=== PATIENT | female | born 1935 | race Caucasian/White ===

== ENCOUNTER 2020-03-05 10:20 | Inpatient (IN) | payer MEDICARE ==
[2020-03-05 11:45] LABS: HEMATOCRIT 45.1 % (36.0-47.0); HEMOGLOBIN 15.2 g/dL (12.0-15.5); MEAN CORPUSCULAR HEMOGLOBIN 29.6 pg (27.0-33.4); MEAN CORPUSCULAR HGB CONC 33.7 g/dL (32.0-36.0); MEAN CORPUSCULAR VOLUME 88 fl (80-97); PLATELET COUNT 389 10^3/uL (150-450); RED BLOOD COUNT 5.12 10^6/uL (3.72-5.28); RED CELL DISTRIBUTION WIDTH 13.3 % (11.5-14.0); WHITE BLOOD COUNT 12.7 10^3/uL (4.0-10.5)
--- NOTE | 2020-03-05 12:00 | RADIOLOGY REPORT (SQ) ---
EXAM DESCRIPTION: CHEST SINGLE VIEW IMAGES COMPLETED DATE/TIME: 03/05/2020 11:27 am REASON FOR STUDY: sob COMPARISON: 03/31/2014 EXAM PARAMETERS: NUMBER OF VIEWS: One view. TECHNIQUE: Single frontal radiographic view of the chest acquired. RADIATION DOSE: NA LIMITATIONS: None. FINDINGS: LUNGS AND PLEURA: Multifocal airspace opacities are seen bilaterally. Small pleural effus ions may be present. No pneumothorax. MEDIASTINUM AND HILAR STRUCTURES: No masses. Contour normal. HEART AND VASCULAR STRUCTURES: Heart normal in size. Normal vasculature. BONES: No acute findings. HARDWARE: None in the chest. OTHER: No other significant finding. IMPRESSION: In the appropriate clinical setting, findings are consistent with multi lobar pneumonia. Given distribution, recommend consideration for atypical etiologies to include viral/ COVID in edenilson tment planning. TECHNICAL DOCUMENTATION: JOB ID: [id number] 2010 [employer]- All Rights Reserved Reading location - IP/workstation name: [email or web address]
[2020-03-05 12:02] LABS: ABSOLUTE MONOCYTES # (MANUAL) 0.9 10^3/uL (0.1-1.4); BAND NEUTROPHILS % (MANUAL) 1 % (3-5); BASOPHILS % (MANUAL) 0 % (0-2); EOSINOPHILS % (MANUAL) 2 % (0-6); LYMPHOCYTES % (MANUAL) 11 % (13-45); MONOCYTES % (MANUAL) 7 % (3-13); SEGMENTED NEUTROPHILS % (MAN) 74 % (42-78); TOTAL CELLS COUNTED 100
[2020-03-05 12:04] LABS: PLATELET CLUMPS PRESENT; PLATELET COMMENT ADEQUATE; RBC MORPHOLOGY COMMENT NORMO-CYTIC/CHROMIC
[2020-03-05 12:24] LABS: BLOOD UREA NITROGEN 51 mg/dL (7-20); CALCIUM 10.3 mg/dL (8.4-10.2); GLUCOSE 100 mg/dL (75-110)
[2020-03-05 12:25] LABS: ALKALINE PHOSPHATASE 177 U/L (38-126); ANION GAP 10 (5-19); ASPARTATE AMINO TRANSFERASE 149 U/L (14-36); BILIRUBIN,DIRECT 0.6 mg/dL (0.0-0.4); BILIRUBIN,TOTAL 0.9 mg/dL (0.2-1.3); CARBON DIOXIDE 21 mmol/L (22-30); CHLORIDE 109 mmol/L (98-107); POTASSIUM 5.9 mmol/L (3.6-5.0)
[2020-03-05 12:26] LABS: TOTAL PROTEIN 8.2 g/dL (6.3-8.2)
[2020-03-05] MEDS ORDERED: SODIUM POLYSTYRENE SULFONATE 15 GM/60 ML PO ONE (12:30)
[2020-03-05] MEDS ORDERED: NORMAL SALINE 1000 ML 1,000 ML IV ONE (12:30)
--- NOTE | 2020-03-05 13:16 | ER Document Report ---
ED General - General Chief Complaint: Shortness Of Breath Stated Complaint: GENERAL WEAKNESS Time Seen by Provider: 03/05/20 11:40 Primary Care Provider: ELENA RUIZ MD [Primary Care Provider] - Follow up as needed Mode of Arrival: Medic Information source: Patient TRAVEL OUTSIDE OF THE [place] IN LAST 30 DAYS: No - HPI Notes: Patient comes in complaint of generalized weakness and shortness of breath. Is been going on for approximately 2 to 3 days. She has also had a cough. No diarrhea or vomiting. She states she does not have any known exposure to the Covid virus. States she lives at home with her 2 sisters and that they are not sick at this time. Her shortness of breath is moderate to severe. Is worse with exertion. - Related Data Allergies/Adverse Reactions: Influenza TV-S - Vaccine [From Fluarix [id number] (PF)] Allergy (Severe, Verified 03/05/20 10:57) Anaphylaxis acetaminophen [From Darvocet-N 100] Adverse Reaction (Severe, Verified 03/05/20 10:57) VOMITING propoxyphene napsylate [From Darvocet-N 100] Adverse Reaction (Severe, Verified 03/05/20 10:57) VOMITING Eggs Allergy (Severe, Uncoded 11/24/12 22:15) Anaphylaxis Home Medications: amlodipine and hctz Past Medical History - General Information source: Patient - Social History Smoking Status: Never Smoker Frequency of alcohol use: None Drug Abuse: None Family History: Other - [place] father and mother Patient has homicidal ideation: No - Past Medical History Cardiac Medical History: Reports: Hx Hypertension Pulmonary Medical History: Denies: Hx Tuberculosis GI Medical History: Reports: Hx Hiatal Hernia Musculoskeletal Medical History: Reports Hx Arthritis Past Surgical History: Reports: Hx Section - x3, Hx Hysterectomy - Immunizations Hx Diphtheria, Pertussis, Tetanus Vaccination: Yes Review of Systems - Review of Systems Constitutional: Malaise, Weakness Cardiovascular: denies: Chest pain, Palpitations Respiratory: Cough, Short of breath -: Yes All other systems reviewed and negative Physical Exam - Vital signs Vitals: Temp 98.1 F 03/05/20 10:21 Interpretation: Normal - General General appearance: Appears well, Alert - HEENT Head: Normocephalic, Atraumatic Eyes: Normal Pupils: PERRL - Respiratory Respiratory status: No respiratory distress Chest status: Nontender Breath sounds: Decreased air movement, Rhonchi Chest palpation: Normal - Cardiovascular Rhythm: Tachycardia Heart sounds: Normal auscultation Murmur: No - Abdominal Inspection: Normal Distension: No distension Bowel sounds: Normal Tenderness: Nontender Organomegaly: No organomegaly - Back Back: Normal, Nontender - Extremities General upper extremity: Normal inspection, Nontender, Normal color, Normal ROM, Normal temperature General lower extremity: Normal inspection, Nontender, Edema, Normal color, Normal ROM, Normal temperature. No: Carlitos's sign - Neurological Neuro grossly intact: Yes Cognition: Normal Orientation: AAOx4 Brewster Coma Scale Eye Opening: Spontaneous Eze Coma Scale Verbal: Oriented Eze Coma Scale Motor: Obeys Commands Eze Coma Scale Total: 15 Speech: Normal Motor strength normal: LUE, RUE, LLE, RLE Sensory: Normal - Psychological Associated symptoms: Normal affect, Normal mood - Skin Skin Temperature: Warm Skin Moisture: Dry Skin Color: Normal Course - Re-evaluation Re-evalutation: 03/05/20 13:13 Patient presents with shortness of breath. X-ray is consistent with Covid virus infection. The Covid test itself is actually pending at this time. Patient's vital signs are currently stable. Patient had a saturation of 85% on room air. She is now approximate 95% on supplemental nasal cannula. She is nontoxic- appearing at this time. She does have a mildly elevated potassium for which I have given her a liter of fluid and Kayexalate and will recheck the potassium after this treatment. Her QRS is not wide and she has no peak T waves. - Vital Signs Vital signs: Temp Pulse Resp BP Pulse Ox 98.1 F 112 H 22 H 144/65 H 96 03/05/20 10:40 03/05/20 10:40 03/05/20 11:27 03/05/20 11:27 03/05/20 11:27 - Laboratory Results Result Diagrams: 03/05/20 11:13 03/05/20 11:13 Laboratory Results Interpreted: 03/05/20 03/05/20 03/05/20 11:13 11:13 11:13 WBC 12.7 H Band Neutrophils % 1 L Lymphocytes % (Manual) 11 L Abs Neuts (Manual) 9.5 H Fibrinogen 599 H Potassium 5.9 H Chloride 109 H Carbon Dioxide 21 L BUN 51 H Creatinine 1.54 H Est GFR ( Amer) 39 L Est GFR (MDRD) Non-Af 32 L Lactic Acid Calcium 10.3 H Direct Bilirubin 0.6 H AST 149 H ALT 105 H Alkaline Phosphatase 177 H 03/05/20 11:25 WBC Band Neutrophils % Lymphocytes % (Manual) Abs Neuts (Manual) Fibrinogen Potassium Chloride Carbon Dioxide BUN Creatinine Est GFR ( Amer) Est GFR (MDRD) Non-Af Lactic Acid 2.4 H Calcium Direct Bilirubin AST ALT Alkaline Phosphatase Critical Laboratory Results Reviewed: Yes Attending or Supervising Physician who Reviewed Labs: APRIL STRANGE - Radiology Results Critical Radiology Results Reviewed: Yes Attending or Supervising Physician who Reviewed Radiology: APRIL STRANGE - EKG Interpretation by Pr EKG shows normal: Sinus rhythm Rate: Normal - 92 Rhythm: NSR Ogema/QRS: No: Right axis deviation, Left axis deviation Discharge - Discharge Clinical Impression: Pneumonia due to COVID-19 virus, Hyperkalemia, Renal insufficiency, Hypoxemia Condition: Serious Disposition: ADMITTED INPATIENT Admitting Provider: Donte (Hospitalist) Unit Admitted: IMCU Referrals: ELENA RUIZ MD [Primary Care Provider] - Follow up as needed
[2020-03-05 14:12] LABS: A TYPE INFLUENZA AG NEGATIVE (NEGATIVE); B INFLUENZA AG NEGATIVE (NEGATIVE)
[2020-03-05] MEDS ORDERED: NORMAL SALINE 1000 ML 1,000 ML IV PRN ×3 (15:02→21:12)
--- NOTE | 2020-03-05 15:16 | PDOC H&P ---
History of Present Illness Admission Date/PCP: 03/05/20 13:46 ELENA RUIZ MD Patient complains of: Increasing shortness of breath, weakness and cough History of Present Illness: RAMSES QUINONES is a 84 year old female who has a history of hypertension and distant history of asthma presents after 3 to 4 days of progressive weakness and shortness of breath. This is associated with a cough. She states cough is productive of white sputum. She denies any fever or chills, nausea, vomiting or diarrhea. She does not know of any exposures. The last time she was out of the office was for a visit to her doctor's office. This was approximately a week ago. On exam she is very weak appearing. She clearly looks ill. Covid serology was negative. Her chest x-ray is consistent with multifocal bilateral pneumonia. She will be admitted for acute respiratory failure with hypoxia from community- acquired pneumonia. With her elevated lactic acid, increased work of breathing and hypoxic failure as well as increased serum creatinine the patient does qualify for sepsis from pneumonia. Past Medical History Cardiac Medical History: Reports: Hypertension Pulmonary Medical History: Reports: Asthma Denies: Tuberculosis EENT Medical History: Denies: Cataracts, Ears, Nose, Throat Neurological Medical History: Denies: Ischemic CVA, Seizures Endocrine Medical History: Denies: Diabetes Mellitus Type 2 Renal/ Medical History: Denies: Chronic Kidney Disease Malignancy Medical History: Reports: None GI Medical History: Reports: Hiatal Hernia Musculoskeltal Medical History: Reports: Arthritis Past Surgical History Past Surgical History: Reports: Section - x3, Hysterectomy Social History Information Source: Patient Lives with: Family Smoking Status: Never Smoker Electronic Cigarette use?: No Frequency of Alcohol Use: None Hx Recreational Drug Use: No Hx Prescription Drug Abuse: No - Advance Directive Resuscitation Status: Full Code Family History Family History: CAD, Other - [place] father and mother Parental Family History Reviewed: Yes Children Family History Reviewed: Yes Sibling(s) Family History Reviewed.: Yes Medication/Allergy Home Medications: Amlodipine Besylate/Benazepril [Amlodipine-Benazepril 5-40 mg] 1 cap PO DAILY 11/24/12 Triamterene/Hydrochlorothiazid [Triamterene-Hctz 75-50 mg Tab] 1 each PO DAILY 11/24/12 Allergies/Adverse Reactions: Influenza TV-S - Vaccine [From Fluarix [id number] (PF)] Allergy (Severe, Verified 03/05/20 10:57) Anaphylaxis acetaminophen [From Darvocet-N 100] Adverse Reaction (Severe, Verified 03/05/20 10:57) VOMITING propoxyphene napsylate [From Darvocet-N 100] Adverse Reaction (Severe, Verified 03/05/20 10:57) VOMITING Eggs Allergy (Severe, Uncoded 11/24/12 22:15) Anaphylaxis Review of Systems All systems: reviewed and no additional remarkable complaints except as stated Constitutional: PRESENT: fatigue, weakness Nose, Mouth, and Throat: PRESENT: other - Very dry mouth Respiratory: PRESENT: cough, dyspnea, sputum Physical Exam Vital Signs: Temp Pulse Resp BP Pulse Ox 98.1 F 112 H 28 H 126/83 H 95 03/05/20 10:40 03/05/20 10:40 03/05/20 13:01 03/05/20 13:00 03/05/20 13:01 Intake & Output 03/04/20 03/05/20 03/06/20 06:59 06:59 06:59 Intake Total 1000 Balance 1000 Weight 70.307 kg General appearance: PRESENT: cooperative, well-developed, other - Moderate distress Head exam: PRESENT: atraumatic, normocephalic Eye exam: PRESENT: conjunctiva pink. ABSENT: scleral icterus Ear exam: PRESENT: normal external ear exam. ABSENT: bleeding, drainage Mouth exam: PRESENT: dry mucosa, tongue midline Respiratory exam: PRESENT: rales - Both bases, symmetrical, tachypnea. ABSENT: accessory muscle use, rhonchi, wheezes Cardiovascular exam: PRESENT: RRR, +S1, +S2. ABSENT: bradycardia, diastolic murmur, irregular rhythm, systolic murmur, tachycardia GI/Abdominal exam: PRESENT: normal bowel sounds, soft. ABSENT: distended, tenderness Rectal exam: PRESENT: deferred Gentrourinary exam: ABSENT: indwelling catheter Extremities exam: ABSENT: pedal edema Musculoskeletal exam: PRESENT: normal inspection. ABSENT: deformity, dislocation Neurological exam: PRESENT: alert, awake, oriented to person, oriented to place, oriented to time, oriented to situation, CN II-XII grossly intact. ABSENT: altered Psychiatric exam: PRESENT: appropriate affect - Affect reflects her current illness. ABSENT: agitated, anxious Focused psych exam: ABSENT: delusional, paranoid, restlessness Skin exam: PRESENT: dry, normal color, warm. ABSENT: rash Results Laboratory Results: 03/05/20 11:13 03/05/20 11:13 03/05/20 03/05/20 03/05/20 11:13 11:13 11:25 WBC 12.7 H RBC 5.12 Hgb 15.2 Hct 45.1 MCV 88 MCH 29.6 MCHC 33.7 RDW 13.3 Plt Count 389 Seg Neutrophils % Not Reportable Sodium 139.5 Potassium 5.9 H Chloride 109 H Carbon Dioxide 21 L Anion Gap 10 BUN 51 H Creatinine 1.54 H Est GFR ( Amer) 39 L Glucose 100 Lactic Acid 2.4 H Calcium 10.3 H Total Bilirubin 0.9 AST 149 H Alkaline Phosphatase 177 H Total Protein 8.2 Albumin 4.0 03/05/20 03/05/20 11:13 11:13 Troponin I < 0.012 NT-Pro-B Natriuret Pep 136 Impressions: Chest X-Ray 03/05/20 10:50 IMPRESSION: In the appropriate clinical setting, findings are consistent with multi lobar pneumonia. Given distribution, recommend consideration for atypical etiologies to include viral/ COVID in treatment planning. Assessment and Plan - Diagnosis (1) Sepsis Qualifiers: Sepsis type: sepsis due to unspecified organism Sepsis acute organ dysfunction status: with acute organ dysfunction Severe sepsis acute organ dysfunction type: acute renal failure Acute renal failure type: with acute tubular necrosis Severe sepsis shock status: without septic shock Qualified Code(s): A41.9 - Sepsis, unspecified organism; R65.20 - Severe sepsis without septic shock; N17.0 - Acute kidney failure with tubular necrosis Is this a current diagnosis for this admission?: Yes (2) Acute respiratory failure with hypoxia Is this a current diagnosis for this admission?: Yes (3) Bilateral pneumonia Qualifiers: Pneumonia type: due to unspecified organism Lung location: unspecified part of lung Qualified Code(s): J18.9 - Pneumonia, unspecified organism Is this a current diagnosis for this admission?: Yes (4) Acute kidney injury Is this a current diagnosis for this admission?: Yes (5) Hyperkalemia Is this a current diagnosis for this admission?: Yes (6) Lactic acidemia Is this a current diagnosis for this admission?: Yes (7) Elevated transaminase level Is this a current diagnosis for this admission?: Yes (8) Hypertension Qualifiers: Hypertension type: essential hypertension Qualified Code(s): I10 - Essential (primary) hypertension Is this a current diagnosis for this admission?: Yes (9) Suspected COVID-19 virus infection Is this a current diagnosis for this admission?: Yes - Plan Summary Summary: (1) Sepsis (2) Acute respiratory failure with hypoxia (3) Bilateral pneumonia (4) Acute kidney injury (5) Hyperkalemia (6) Lactic acidemia (7) Elevated transaminase level (8) Hypertension (9) Suspected COVID-19 virus infection 03/05/2020 Sepsis-most likely due to the pneumonia. I have ordered a urinalysis with reflex to culture as well. She will receive the fluid bolus per sepsis protocol. I have started her on ceftriaxone and doxycycline. We will supplement oxygen to keep saturations greater than 93%. We will monitor the patient on telemetry. Monitor intake and output as well as laboratory studies. Acute respiratory failure with hypoxia-utilize oxygen to keep saturation greater than 93%. Bilateral pneumonia-initiate dual antibiotic therapy with ceftriaxone and azithromycin. Inflammatory markers are elevated including D-dimer. Will recheck tomorrow. After IV fluids if renal function improves consider CTA of the chest to rule out PE. There is no swelling in her legs to suggest DVT. This could be a false negative Covid pneumonia as well. Acute kidney injury-BUN is up to 51 creatinine of 1.54 giving an estimated GFR of 32. We will administer the sepsis fluid bolus and I will continue IV fluids through the night. Monitor intake and output and recheck renal function in the morning. Urinalysis is also ordered. Hyperkalemia-serum potassium is 5.9. The patient received Kayexalate in the emergency department. Repeat chemistries ordered for later this evening. Repeat chemistry is also for the morning. With the fluid bolus and ongoing IV fluids in addition to the Kayexalate we should see a significant improvement in the potassium level. Hypertension-the patient is on 2 combination medicines. Triamterene with hyd rochlorothiazide is one and amlodipine with benazepril is the other. 3 of those medicines could irritate the kidneys. We will continue the amlodipine and monitor on telemetry. I will hold the hydrochlorothiazide, triamterene and benazepril for the time being. I will monitor blood pressures and adjust medications accordingly. Elevated transaminases-secondary to sepsis. We will continue to monitor. Lactic acidemia-serum lactic acid was slightly elevated initially. Will monitor with serial labs after IV bolus given. Increased lactic acid due to sepsis. Suspected Covid infection-the patient does have several indicators to suggest a pneumonia from Covid virus. This includes the elevated D-dimer. CRP is slightly elevated as is the ferritin. As noted above we will reassess laboratory studies in the morning. If the GFR improves then consider CT angiogram to rule out possible pulmonary embolus. 55 minutes of critical care was dedicated to this patient encounter - Time Total Critical Time (Minutes): 55 Medications reviewed and adjusted accordingly: Yes Anticipated Discharge Disposition: Unknown Anticipated Discharge Timeframe: Unknown - Inpatient Certification Based on my medical assessment, after consideration of the patient's comorbidities, presenting symptoms, or acuity I expect that the services needed warrant INPATIENT care.: Yes I certify that my determination is in accordance with my understanding of Medicare's requirements for reasonable and necessary INPATIENT services [42 CFR 412.3e].: Yes Medical Necessity: Need Close Monitoring Due to Risk of Patient Decompensation, Need For IV Fluids, Need For Continuous Telemetry Monitoring, Need for Nebulizer Therapy and Monitoring of Response, Need for IV Antibiotics, Risk of Complication if Not Cared For in Hospital, Risk of Diagnosis Which Will Require Inpatient Eval/Care/Monitoring Post Hospital Care: D/C or Transfer Summary
[2020-03-05] MEDS ORDERED: NORMAL SALINE IV ONE (15:17)
[2020-03-05] MEDS ORDERED: LEVALBUTEROL HCL NEB 1.25 MG/3 ML AMPUL NEB PRN (15:36)
[2020-03-05 17:26] LABS: C-REACTIVE PROTEIN 28.8 mg/L (<10.0)
--- NOTE | 2020-03-05 19:13 | EKG REPORT ---
SEVERITY:- ABNORMAL ECG - SINUS RHYTHM INFERIOR INFARCT, AGE INDETERMINATE ANTERIOR INFARCT, OLD : Confirmed by: Oxana Olvera MD 05-Mar-2020 19:12:38
[2020-03-05] MEDS ORDERED: AMLODIPINE BESYLATE 5 MG TABLET PO ONE (21:09)
[2020-03-05] MEDS ORDERED: METOPROLOL TARTRATE PF/INJ 5 MG/5 ML SDV IV PRN (21:12)
[2020-03-05] MEDS ORDERED: HYDRALAZINE HCL INJ/PF 20 MG/1 ML SDV IV PRN (21:13)
[2020-03-05] MEDS: GUAIFENESIN 600 MG TABLET.SA PO SCH (21:44)
[2020-03-05] MEDS: ASPIRIN 81 MG TABLET, ENT COATED PO SCH (21:44)
[2020-03-05] MEDS: HEPARIN SOD (PORCINE) 5,000 UNIT/ML 1 ML VIAL SUBCUT SCH (21:44)
[2020-03-05] MEDS: DOXYCYCLINE HYCLATE 100 MG in DEXTROSE 5%-WATER 250 ML IV SCH (21:51)
[2020-03-06 03:15] LABS: APPEARANCE,URINE CLEAR; BILIRUBIN,URINE NEGATIVE (NEGATIVE); COLOR,URINE YELLOW; GLUCOSE, URINE NEGATIVE (NEGATIVE); KETONES,URINE NEGATIVE (NEGATIVE); PROTEIN,URINE NEGATIVE (NEGATIVE); URINE SPECIFIC GRAVITY 1.012; UROBILINOGEN,URINE NEGATIVE mg/dL (<2.0)
[2020-03-06] MEDS: PANTOPRAZOLE SODIUM 40 MG TABLET.DR PO SCH (05:12)
[2020-03-06] MEDS: HEPARIN SOD (PORCINE) 5,000 UNIT/ML 1 ML VIAL SUBCUT SCH ×3 (05:12→23:12)
[2020-03-06 06:38] LABS: ABSOLUTE EOSINOPHILS # (AUTO) 0.1 10^3/uL (0.0-0.6); ABSOLUTE LYMPHOCYTES (AUTO) 1.6 10^3/uL (0.5-4.7); ABSOLUTE MONOCYTES (AUTO) 1.3 10^3/uL (0.1-1.4); ABSOLUTE NEUT (AUTO) 6.7 10^3/uL (1.7-8.2); BASOPHILS % (AUTO) 0.5 % (0-2); EOSINOPHILS % (AUTO) 1.5 % (0-6); HEMATOCRIT 36.5 % (36.0-47.0); LYMPHOCYTES % (AUTO) 16.5 % (13-45); MEAN CORPUSCULAR HEMOGLOBIN 29.9 pg (27.0-33.4); MEAN CORPUSCULAR HGB CONC 34.1 g/dL (32.0-36.0); MEAN CORPUSCULAR VOLUME 88 fl (80-97); MONOCYTES % (AUTO) 13.1 % (3-13); PLATELET COUNT 315 10^3/uL (150-450); RED BLOOD COUNT 4.15 10^6/uL (3.72-5.28); RED CELL DISTRIBUTION WIDTH 13.7 % (11.5-14.0); SEGMENTED NEUTROPHILS % (AUTO) 68.4 % (42-78); TOTAL CELLS COUNTED % (AUTO) 100 %; WHITE BLOOD COUNT 9.7 10^3/uL (4.0-10.5)
[2020-03-06 06:43] LABS: HEMOGLOBIN 12.4 g/dL (12.0-15.5)
[2020-03-06 06:46] LABS: ALBUMIN 2.7 g/dL (3.5-5.0); ALKALINE PHOSPHATASE 135 U/L (38-126); ANION GAP 5 (5-19); ASPARTATE AMINO TRANSFERASE 66 U/L (14-36); BILIRUBIN,DIRECT 0.4 mg/dL (0.0-0.4); BILIRUBIN,TOTAL 0.6 mg/dL (0.2-1.3); BLOOD UREA NITROGEN 37 mg/dL (7-20); CALCIUM 8.9 mg/dL (8.4-10.2); CARBON DIOXIDE 22 mmol/L (22-30); CHLORIDE 112 mmol/L (98-107); GLUCOSE 95 mg/dL (75-110); POTASSIUM 5.1 mmol/L (3.6-5.0); TOTAL PROTEIN 5.7 g/dL (6.3-8.2)
[2020-03-06] MEDS: GUAIFENESIN 600 MG TABLET.SA PO SCH ×2 (09:55→23:12)
[2020-03-06] MEDS: AMLODIPINE BESYLATE 10 MG TABLET PO SCH (09:55)
[2020-03-06] MEDS ORDERED: CEFTRIAXONE 1 GM/D5W RTU 1 GM/50 ML RTUPB IV SCH (10:00)
[2020-03-06] MEDS ORDERED: AMLODIPINE BESYLATE 5 MG TABLET PO SCH (10:00)
[2020-03-06] MEDS: CEFTRIAXONE SODIUM 1,000 MG in DEXTROSE 5%-WATER 50 ML IV SCH (11:40)
--- NOTE | 2020-03-06 12:25 | PDOC PROGRESS REPORT ---
Subjective Date:: 03/06/20 Subjective:: Patient still on oxygen but states that she feels somewhat better than yesterday . Unfortunately her D-dimer is still elevated. Patient is still weak Reason For Visit: PNEUMONIA DUE TO COVID19, HYPERKALEMIA, RENAL Physical Exam Vital Signs: Temp Pulse Resp BP Pulse Ox 98.0 F 81 18 133/59 H 96 03/06/20 10:00 03/06/20 09:38 03/06/20 09:38 03/06/20 09:38 03/06/20 09:38 Intake & Output 03/05/20 03/06/20 03/07/20 06:59 06:59 06:59 Intake Total 3480 Output Total 450 Balance 3030 Weight 71.5 kg General appearance: PRESENT: cooperative, mild distress, well-developed, well- nourished Head exam: PRESENT: atraumatic, normocephalic Eye exam: PRESENT: conjunctiva pink. ABSENT: scleral icterus Mouth exam: PRESENT: moist, tongue midline Respiratory exam: PRESENT: rales, rhonchi, symmetrical, unlabored. ABSENT: ta chypnea, wheezes Cardiovascular exam: PRESENT: RRR, +S1, +S2. ABSENT: bradycardia, diastolic murmur, irregular rhythm, systolic murmur, tachycardia GI/Abdominal exam: PRESENT: normal bowel sounds, soft. ABSENT: distended, guarding, tenderness Rectal exam: PRESENT: deferred Extremities exam: ABSENT: pedal edema Musculoskeletal exam: PRESENT: normal inspection. ABSENT: deformity, dislocation Neurological exam: PRESENT: alert, awake, oriented to person, oriented to place, oriented to time, oriented to situation, CN II-XII grossly intact. ABSENT: altered Psychiatric exam: PRESENT: flat affect, other - Still looks quite fatigued. ABSENT: agitated, anxious Focused psych exam: ABSENT: delusional, paranoid, restlessness Skin exam: PRESENT: dry, normal color, warm. ABSENT: cyanosis, erythema, rash Results Laboratory Results: 03/06/20 05:56 03/06/20 05:56 03/05/20 03/05/20 03/05/20 11:13 16:54 16:54 WBC RBC Hgb Hct MCV MCH MCHC RDW Plt Count Seg Neutrophils % Sodium 139.5 Potassium 5.9 H Chloride 109 H Carbon Dioxide 21 L Anion Gap 10 BUN 51 H Creatinine 1.54 H Est GFR ( Amer) 39 L Glucose 100 Lactic Acid 1.5 Calcium 10.3 H Magnesium Ferritin 220.00 Total Bilirubin 0.9 AST 149 H Alkaline Phosphatase 177 H C-Reactive Protein 28.8 H Total Protein 8.2 Albumin 4.0 Urine Color Urine Appearance Urine pH Ur Specific [place] Urine Protein Urine Glucose (UA) Urine Ketones Urine Blood Urine RBC (Auto) 03/05/20 03/06/20 03/06/20 21:33 00:28 02:40 WBC RBC Hgb Hct MCV MCH MCHC RDW Plt Count Seg Neutrophils % Sodium Potassium Chloride Carbon Dioxide Anion Gap BUN Creatinine Est GFR ( Amer) Glucose Lactic Acid 1.2 1.4 Calcium Magnesium Ferritin Total Bilirubin AST Alkaline Phosphatase C-Reactive Protein Total Protein Albumin Urine Color YELLOW Urine Appearance CLEAR Urine pH 5.0 Ur Specific [place] 1.012 Urine Protein NEGATIVE Urine Glucose (UA) NEGATIVE Urine Ketones NEGATIVE Urine Blood NEGATIVE Urine RBC (Auto) 0 03/06/20 03/06/20 05:56 05:56 WBC 9.7 RBC 4.15 Hgb 12.4 D Hct 36.5 MCV 88 MCH 29.9 MCHC 34.1 RDW 13.7 Plt Count 315 Seg Neutrophils % 68.4 Sodium 139.0 Potassium 5.1 H Chloride 112 H Carbon Dioxide 22 Anion Gap 5 BUN 37 H Creatinine 1.20 Est GFR ( Amer) 52 L Glucose 95 Lactic Acid Calcium 8.9 Magnesium 2.1 Ferritin Total Bilirubin 0.6 AST 66 H Alkaline Phosphatase 135 H C-Reactive Protein 46.0 H Total Protein 5.7 L Albumin 2.7 L Urine Color Urine Appearance Urine pH Ur Specific [place] Urine Protein Urine Glucose (UA) Urine Ketones Urine Blood Urine RBC (Auto) 03/05/20 03/05/20 11:13 11:13 Troponin I < 0.012 NT-Pro-B Natriuret Pep 136 Impressions: Chest X-Ray 03/05/20 10:50 IMPRESSION: In the appropriate clinical setting, findings are consistent with multi lobar pneumonia. Given distribution, recommend consideration for atypical etiologies to include viral/ COVID in treatment planning. Assessment and Plan - Diagnosis (1) Sepsis Qualifiers: Sepsis type: sepsis due to unspecified organism Sepsis acute organ dysfunction status: with acute organ dysfunction Severe sepsis acute organ dysfunction type: acute renal failure Acute renal failure type: with acute tubular necrosis Severe sepsis shock status: without septic shock Qualified Code(s): A41.9 - Sepsis, unspecified organism; R65.20 - Severe sepsis without septic shock; N17.0 - Acute kidney failure with tubular necrosis Is this a current diagnosis for this admission?: Yes (2) Acute respiratory failure with hypoxia Is this a current diagnosis for this admission?: Yes (3) Bilateral pneumonia Qualifiers: Pneumonia type: due to unspecified organism Lung location: unspecified part of lung Qualified Code(s): J18.9 - Pneumonia, unspecified organism Is this a current diagnosis for this admission?: Yes (4) Acute kidney injury Is this a current diagnosis for this admission?: Yes (5) Hyperkalemia Is this a current diagnosis for this admission?: Yes (6) Lactic acidemia Is this a current diagnosis for this admission?: Yes (7) Elevated transaminase level Is this a current diagnosis for this admission?: Yes (8) Hypertension Qualifiers: Hypertension type: essential hypertension Qualified Code(s): I10 - Essential (primary) hypertension Is this a current diagnosis for this admission?: Yes (9) Suspected COVID-19 virus infection Is this a current diagnosis for this admission?: Yes - Plan Summary Summary: (1) Sepsis (2) Acute respiratory failure with hypoxia (3) Bilateral pneumonia (4) Acute kidney injury (5) Hyperkalemia (6) Lactic acidemia (7) Elevated transaminase level (8) Hypertension (9) Suspected COVID-19 virus infection 03/05/2020 Sepsis-most likely due to the pneumonia. I have ordered a urinalysis with reflex to culture as well. She will receive the fluid bolus per sepsis protocol. I have started her on ceftriaxone and doxycycline. We will supplement oxygen to keep saturations greater than 93%. We will monitor the patient on telemetry. Monitor intake and output as well as laboratory studies. Acute respiratory failure with hypoxia-utilize oxygen to keep saturation greater than 93%. Bilateral pneumonia-initiate dual antibiotic therapy with ceftriaxone and azithromycin. Inflammatory markers are elevated including D-dimer. Will recheck tomorrow. After IV fluids if renal function improves consider CTA of the chest to rule out PE. There is no swelling in her legs to suggest DVT. This could be a false negative Covid pneumonia as well. Acute kidney injury-BUN is up to 51 creatinine of 1.54 giving an estimated GFR of 32. We will administer the sepsis fluid bolus and I will continue IV fluids through the night. Monitor intake and output and recheck renal function in the morning. Urinalysis is also ordered. Hyperkalemia-serum potassium is 5.9. The patient received Kayexalate in the emergency department. Repeat chemistries ordered for later this evening. Repeat chemistry is also for the morning. With the fluid bolus and ongoing IV fluids in addition to the Kayexalate we should see a significant improvement in the potassium level. Hypertension-the patient is on 2 combination medicines. Triamterene with hydrochlorothiazide is one and amlodipine with benazepril is the other. 3 of those medicines could irritate the kidneys. We will continue the amlodipine and monitor on telemetry. I will hold the hydrochlorothiazide, triamterene and benazepril for the time being. I will monitor blood pressures and adjust medications accordingly. Elevated transaminases-secondary to sepsis. We will continue to monitor. Lactic acidemia-serum lactic acid was slightly elevated initially. Will monitor with serial labs after IV bolus given. Increased lactic acid due to sepsis. Suspected Covid infection-the patient does have several indicators to suggest a pneumonia from Covid virus. This includes the elevated D-dimer. CRP is slightly elevated as is the ferritin. As noted above we will reassess laboratory studies in the morning. If the GFR improves then consider CT angiogram to rule out possible pulmonary embolus. 55 minutes of critical care was dedicated to this patient encounter 03/06/2020 Sepsis-resolved. Acute respiratory failure with hypoxia-remains on nasal cannula. The goal be to wean back to room air. Bilateral pneumonia-we will continue antibiotic therapy and monitor closely. Continue to check inflammatory markers. Despite the elevated D-dimer and elevated fibrinogen level decreases the likelihood of pulmonary embolus. Continue prophylactic anticoagulation. Acute kidney injury-BUN and creatinine are improved. Continue gentle fluids and recheck tomorrow Hyperkalemia-serum potassium is improved and is down to 5.1. Continue fluids and recheck tomorrow Elevated transaminases-improving with fluids and resolution of sepsis Lactic acidemia resolved Suspected Covid infection-Covid serology was negative. The patient is responding to the antibiotic therapy. Not likely Covid pneumonia. - Time Time Spent with patient: 25-34 minutes Medications reviewed and adjusted accordingly: Yes Anticipated Discharge Disposition: Home with Home Health Anticipated Discharge Timeframe: Unknown
[2020-03-06] MEDS: DOXYCYCLINE HYCLATE 100 MG in DEXTROSE 5%-WATER 250 ML IV SCH ×2 (13:06→23:14)
[2020-03-06] MEDS: ASPIRIN 81 MG TABLET, ENT COATED PO SCH (23:12)
[2020-03-06] MEDS: NORMAL SALINE 1000 ML 1,000 ML IV PRN (23:14)
[2020-03-07] MEDS: HEPARIN SOD (PORCINE) 5,000 UNIT/ML 1 ML VIAL SUBCUT SCH ×3 (05:28→22:38)
[2020-03-07] MEDS: PANTOPRAZOLE SODIUM 40 MG TABLET.DR PO SCH (05:28)
[2020-03-07 07:21] LABS: ABSOLUTE BASOPHILS # (AUTO) 0.1 10^3/uL (0.0-0.2); ABSOLUTE EOSINOPHILS # (AUTO) 0.2 10^3/uL (0.0-0.6); ABSOLUTE LYMPHOCYTES (AUTO) 1.8 10^3/uL (0.5-4.7); ABSOLUTE MONOCYTES (AUTO) 1.1 10^3/uL (0.1-1.4); ABSOLUTE NEUT (AUTO) 5.6 10^3/uL (1.7-8.2); BASOPHILS % (AUTO) 0.6 % (0-2); EOSINOPHILS % (AUTO) 2.3 % (0-6); LYMPHOCYTES % (AUTO) 20.9 % (13-45); MEAN CORPUSCULAR HEMOGLOBIN 29.2 pg (27.0-33.4); MEAN CORPUSCULAR HGB CONC 33.5 g/dL (32.0-36.0); MEAN CORPUSCULAR VOLUME 87 fl (80-97); MONOCYTES % (AUTO) 12.9 % (3-13); PLATELET COUNT 297 10^3/uL (150-450); RED BLOOD COUNT 4.12 10^6/uL (3.72-5.28); RED CELL DISTRIBUTION WIDTH 13.2 % (11.5-14.0); SEGMENTED NEUTROPHILS % (AUTO) 63.3 % (42-78); TOTAL CELLS COUNTED % (AUTO) 100 %; WHITE BLOOD COUNT 8.8 10^3/uL (4.0-10.5)
[2020-03-07 07:58] LABS: ALBUMIN 2.5 g/dL (3.5-5.0); ALKALINE PHOSPHATASE 134 U/L (38-126); ANION GAP 5 (5-19); ASPARTATE AMINO TRANSFERASE 47 U/L (14-36); BILIRUBIN,DIRECT 0.4 mg/dL (0.0-0.4); BILIRUBIN,TOTAL 0.5 mg/dL (0.2-1.3); BLOOD UREA NITROGEN 30 mg/dL (7-20); CALCIUM 8.6 mg/dL (8.4-10.2); CARBON DIOXIDE 21 mmol/L (22-30); CHLORIDE 109 mmol/L (98-107); GLUCOSE 111 mg/dL (75-110); POTASSIUM 4.3 mmol/L (3.6-5.0); TOTAL PROTEIN 5.5 g/dL (6.3-8.2)
[2020-03-07] MEDS: NORMAL SALINE 1000 ML 1,000 ML IV PRN (08:39)
[2020-03-07] MEDS: GUAIFENESIN 600 MG TABLET.SA PO SCH ×2 (10:46→22:37)
[2020-03-07] MEDS: AMLODIPINE BESYLATE 10 MG TABLET PO SCH (10:46)
[2020-03-07] MEDS: CEFTRIAXONE SODIUM 1,000 MG in DEXTROSE 5%-WATER 50 ML IV SCH (10:47)
[2020-03-07] MEDS: DOXYCYCLINE HYCLATE 100 MG in DEXTROSE 5%-WATER 250 ML IV SCH ×2 (10:55→22:37)
--- NOTE | 2020-03-07 15:44 | ADVANCED CARE ---
- Diagnosis (1) Acute respiratory failure with hypoxia Diagnosis Current: Yes (2) Bilateral pneumonia Diagnosis Current: Yes (3) Sepsis Diagnosis Current: Yes Resuscitation Status: Do Not Resuscitate Discussion: Patient has a living will. Her medical POA, in the event that she is unable to make decisions for herself, is her sister, Kaycee Peck. She wishes for her code status to be DNR/DNI. Time Spent: >16 minutes
--- NOTE | 2020-03-07 15:59 | PDOC PROGRESS REPORT ---
Subjective Date:: 03/07/20 Subjective:: NAEO. She remains hypoxic and extremely fatigued. Reason For Visit: PNEUMONIA DUE TO COVID19, HYPERKALEMIA, RENAL Physical Exam Vital Signs: Temp Pulse Resp BP Pulse Ox 97.6 F 82 18 142/48 H 93 03/07/20 12:00 03/07/20 12:00 03/07/20 12:00 03/07/20 12:00 03/07/20 12:00 Intake & Output 03/06/20 03/07/20 03/08/20 06:59 06:59 06:59 Intake Total 3480 1480 1196 Output Total 450 500 300 Balance 3030 980 896 Weight 71.5 kg 71.5 kg General appearance: PRESENT: no acute distress, cooperative Eye exam: ABSENT: scleral icterus Mouth exam: PRESENT: dry mucosa Throat exam: ABSENT: post pharyngeal erythema Neck exam: ABSENT: JVD Respiratory exam: PRESENT: rhonchi, tachypnea. ABSENT: crackles Cardiovascular exam: PRESENT: RRR GI/Abdominal exam: PRESENT: normal bowel sounds, soft. ABSENT: tenderness Neurological exam: PRESENT: alert, awake, oriented to person, oriented to place, oriented to time, oriented to situation Psychiatric exam: PRESENT: appropriate affect Skin exam: ABSENT: jaundice, rash Results Laboratory Results: 03/07/20 06:32 03/07/20 06:32 03/07/20 03/07/20 06:32 06:32 WBC 8.8 RBC 4.12 Hgb 12.0 Hct 36.0 MCV 87 MCH 29.2 MCHC 33.5 RDW 13.2 Plt Count 297 Seg Neutrophils % 63.3 Sodium 135.3 L Potassium 4.3 Chloride 109 H Carbon Dioxide 21 L Anion Gap 5 BUN 30 H Creatinine 1.27 H Est GFR ( Amer) 48 L Glucose 111 H Calcium 8.6 Magnesium 1.8 Total Bilirubin 0.5 AST 47 H Alkaline Phosphatase 134 H Total Protein 5.5 L Albumin 2.5 L 03/05/20 03/05/20 11:13 11:13 Troponin I < 0.012 NT-Pro-B Natriuret Pep 136 Impressions: Chest X-Ray 03/05/20 10:50 IMPRESSION: In the appropriate clinical setting, findings are consistent with multi lobar pneumonia. Given distribution, recommend consideration for atypical etiologies to include viral/ COVID in treatment planning. Assessment and Plan - Diagnosis (1) Acute respiratory failure with hypoxia Is this a current diagnosis for this admission?: Yes (2) Bilateral pneumonia Qualifiers: Pneumonia type: due to unspecified organism Lung location: unspecified part of lung Qualified Code(s): J18.9 - Pneumonia, unspecified organism Is this a current diagnosis for this admission?: Yes (3) Sepsis Qualifiers: Sepsis type: sepsis due to unspecified organism Sepsis acute organ dysfunction status: with acute organ dysfunction Severe sepsis acute organ dysfunction type: acute renal failure Acute renal failure type: with acute tubular necrosis Severe sepsis shock status: without septic shock Qualified Code(s): A41.9 - Sepsis, unspecified organism; R65.20 - Severe sepsis without septic shock; N17.0 - Acute kidney failure with tubular necrosis Is this a current diagnosis for this admission?: Yes (4) Acute kidney injury Is this a current diagnosis for this admission?: Yes (5) Elevated transaminase level Is this a current diagnosis for this admission?: Yes (6) Hyperkalemia Is this a current diagnosis for this admission?: Yes (7) Hypertension Qualifiers: Hypertension type: essential hypertension Qualified Code(s): I10 - Essential (primary) hypertension Is this a current diagnosis for this admission?: Yes (8) Lactic acidemia Is this a current diagnosis for this admission?: Yes - Plan Summary Summary: RAMSES QUINONES is an 84 year old female who has a history of HTN, PUD and asthma who presented with 3 to 4 days of progressively worsening weakness, shortness of breath and cough productive of sputum. She denies any fever or chills, nausea, vomiting or diarrhea. She lives with her sisters, and they are all sick, although all of them have been tested for Covid and are all negative. Sepsis due to Bacterial Pneumonia - continue ceftriaxone and doxycycline - she has now tested negative 4 times for Covid (prior to presentation at outpatient facility, by EMS, in the ED, and on the floor) Acute respiratory failure with hypoxia - due to pneumonia - wean off O2 as tolerated PRN goal saturation >90% Acute kidney injury - due to sepsis, dehydration and poor oral intake - continue IVF Hyperkalemia - serum potassium 5.9 on presentation and resolved with IVF Hypertension - continue to hold home Triamterene, HCTZ and benazepril - continue amlodipine Elevated transaminases - secondary to sepsis, improving with above treatment Lactic acidosis - resolved with IVF hydration - Time Time Spent with patient: 35 or more minutes Anticipated Discharge Disposition: Home with Home Health Anticipated Discharge Timeframe: within 48 hours
[2020-03-07] MEDS: ASPIRIN 81 MG TABLET, ENT COATED PO SCH (22:37)
[2020-03-08 05:37] LABS: ABSOLUTE BASOPHILS # (AUTO) 0.1 10^3/uL (0.0-0.2); ABSOLUTE EOSINOPHILS # (AUTO) 0.2 10^3/uL (0.0-0.6); ABSOLUTE LYMPHOCYTES (AUTO) 2.1 10^3/uL (0.5-4.7); ABSOLUTE MONOCYTES (AUTO) 1.3 10^3/uL (0.1-1.4); ABSOLUTE NEUT (AUTO) 5.7 10^3/uL (1.7-8.2); BASOPHILS % (AUTO) 0.8 % (0-2); EOSINOPHILS % (AUTO) 1.7 % (0-6); HEMATOCRIT 36.7 % (36.0-47.0); HEMOGLOBIN 12.3 g/dL (12.0-15.5); LYMPHOCYTES % (AUTO) 22.3 % (13-45); MEAN CORPUSCULAR HEMOGLOBIN 29.3 pg (27.0-33.4); MEAN CORPUSCULAR HGB CONC 33.4 g/dL (32.0-36.0); MEAN CORPUSCULAR VOLUME 88 fl (80-97); MONOCYTES % (AUTO) 13.8 % (3-13); PLATELET COUNT 288 10^3/uL (150-450); RED BLOOD COUNT 4.18 10^6/uL (3.72-5.28); RED CELL DISTRIBUTION WIDTH 13.6 % (11.5-14.0); SEGMENTED NEUTROPHILS % (AUTO) 61.4 % (42-78); TOTAL CELLS COUNTED % (AUTO) 100 %; WHITE BLOOD COUNT 9.2 10^3/uL (4.0-10.5)
[2020-03-08 06:13] LABS: ALBUMIN 2.6 g/dL (3.5-5.0); ALKALINE PHOSPHATASE 144 U/L (38-126); ANION GAP 9 (5-19); ASPARTATE AMINO TRANSFERASE 42 U/L (14-36); BILIRUBIN,DIRECT 0.5 mg/dL (0.0-0.4); BILIRUBIN,TOTAL 0.6 mg/dL (0.2-1.3); BLOOD UREA NITROGEN 26 mg/dL (7-20); CALCIUM 8.7 mg/dL (8.4-10.2); CARBON DIOXIDE 19 mmol/L (22-30); CHLORIDE 110 mmol/L (98-107); GLUCOSE 102 mg/dL (75-110); TOTAL PROTEIN 5.6 g/dL (6.3-8.2)
[2020-03-08] MEDS: PANTOPRAZOLE SODIUM 40 MG TABLET.DR PO SCH (07:09)
[2020-03-08] MEDS: HEPARIN SOD (PORCINE) 5,000 UNIT/ML 1 ML VIAL SUBCUT SCH (07:09)
[2020-03-08] MEDS: AMLODIPINE BESYLATE 10 MG TABLET PO SCH (10:30)
[2020-03-08] MEDS: GUAIFENESIN 600 MG TABLET.SA PO SCH (10:30)
[2020-03-08] MEDS: DOXYCYCLINE HYCLATE 100 MG in DEXTROSE 5%-WATER 250 ML IV SCH (10:31)
[2020-03-08] MEDS: CEFTRIAXONE SODIUM 1,000 MG in DEXTROSE 5%-WATER 50 ML IV SCH (10:31)
[2020-03-08 14:12] VITALS: BP 136/41
--- NOTE | 2020-03-08 20:44 | PDOC DISCHARGE SUMMARY ---
Impression - Admit/DC Date/PCP Admission Date/Primary Care Provider: 03/05/20 13:46 ELENA RUIZ MD Discharge Date: 03/08/20 - Discharge Diagnosis (1) Acute respiratory failure with hypoxia Is this a current diagnosis for this admission?: Yes (2) Bilateral pneumonia Is this a current diagnosis for this admission?: Yes (3) Sepsis Is this a current diagnosis for this admission?: Yes (4) Acute kidney injury Is this a current diagnosis for this admission?: Yes (5) Elevated transaminase level Is this a current diagnosis for this admission?: Yes (6) Hyperkalemia Is this a current diagnosis for this admission?: Yes (7) Hypertension Is this a current diagnosis for this admission?: Yes (8) Lactic acidemia Is this a current diagnosis for this admission?: Yes - Assessment Summary: RAMSES QUINONES is an 84 year old female who has a history of HTN, PUD and asthma who presented with 3 to 4 days of progressively worsening weakness, shortness of breath and cough productive of sputum. She denies any fever or chills, nausea, vomiting or diarrhea. She lives with her sisters, and they are all sick, although all of them have been tested for Covid and are all negative. Sepsis due to Bacterial Pneumonia: she tested negative 4 times for Covid (prior to presentation at outpatient facility, by EMS, in the ED, and on the floor). She improved with treatment with IV antibiotics and was discharged on oral antibiotics to complete a total 7 day course of therapy. Acute respiratory failure with hypoxia: was due to pneumonia and resolved with IV antibiotics. On the day of discharge, she was >96% on RA at rest and remained >94% on room air with ambulation. Acute kidney injury: due to sepsis, dehydration and poor oral intake. Improved with IVF hydration. Hyperkalemia: serum potassium 5.9 on presentation and resolved with IVF. Elevated transaminases: secondary to sepsis, improving with above treatment. Lactic acidosis: resolved with IVF hydration. - Additional Information Resuscitation Status: Do Not Resuscitate Discharge Diet: Cardiac Discharge Activity: Activity As Tolerated, Balance Activity w/Rest Referrals: ELENA RUIZ MD [Primary Care Provider] - Follow up as needed (*-) Prescriptions: Azithromycin 500 mg PO DAILY #3 tablet Home Medications: Amlodipine Besylate/Benazepril [Amlodipine-Benazepril 5-40 mg] 1 cap PO DAILY 11/24/12 Triamterene/Hydrochlorothiazid [Triamterene-Hctz 75-50 mg Tab] 1 each PO DAILY 11/24/12 Azithromycin 500 mg PO DAILY #3 tablet 03/08/20 History of Present Illiness History of Present Illness: RAMSES QUINONES is a 84 year old female Physical Exam Vital Signs: Temp Pulse Resp BP Pulse Ox 97.6 F 88 18 136/41 H 91 L 03/08/20 14:05 03/08/20 14:05 03/08/20 14:05 03/08/20 14:05 03/08/20 14:05 Intake & Output 03/07/20 03/08/20 03/09/20 06:59 06:59 06:59 Intake Total 1480 1978 1368 Output Total 500 800 Balance 980 1178 1368 Weight 71.5 kg 71.6 kg Results Laboratory Results: WBC 9.2 10^3/uL (4.0-10.5) 03/08/20 04:44 RBC 4.18 10^6/uL (3.72-5.28) 03/08/20 04:44 Hgb 12.3 g/dL (12.0-15.5) 03/08/20 04:44 Hct 36.7 % (36.0-47.0) 03/08/20 04:44 MCV 88 fl (80-97) 03/08/20 04:44 MCH 29.3 pg (27.0-33.4) 03/08/20 04:44 MCHC 33.4 g/dL (32.0-36.0) 03/08/20 04:44 RDW 13.6 % (11.5-14.0) 03/08/20 04:44 Plt Count 288 10^3/uL (150-450) 03/08/20 04:44 Lymph % (Auto) 22.3 % (13-45) 03/08/20 04:44 [place] % (Auto) 13.8 % (3-13) H 03/08/20 04:44 Eos % (Auto) 1.7 % (0-6) 03/08/20 04:44 Baso % (Auto) 0.8 % (0-2) 03/08/20 04:44 Absolute Neuts (auto) 5.7 10^3/uL (1.7-8.2) 03/08/20 04:44 Absolute Lymphs (auto) 2.1 10^3/uL (0.5-4.7) 03/08/20 04:44 Absolute Monos (auto) 1.3 10^3/uL (0.1-1.4) 03/08/20 04:44 Absolute Eos (auto) 0.2 10^3/uL (0.0-0.6) 03/08/20 04:44 Absolute Basos (auto) 0.1 10^3/uL (0.0-0.2) 03/08/20 04:44 Total Counted 100 03/05/20 11:13 Seg Neutrophils % 61.4 % (42-78) 03/08/20 04:44 Seg Neuts % (Manual) 74 % (42-78) 03/05/20 11:13 Band Neutrophils % 1 % (3-5) L 03/05/20 11:13 Lymphocytes % (Manual) 11 % (13-45) L 03/05/20 11:13 Atypical Lymphs % 5 % (0) 03/05/20 11:13 Monocytes % (Manual) 7 % (3-13) 03/05/20 11:13 Eosinophils % (Manual) 2 % (0-6) 03/05/20 11:13 Basophils % (Manual) 0 % (0-2) 03/05/20 11:13 Abs Neuts (Manual) 9.5 10^3/uL (1.7-8.2) H 03/05/20 11:13 Abs Lymphs (Manual) 2.0 10^3/uL (0.5-4.7) 03/05/20 11:13 Abs Monocytes (Manual) 0.9 10^3/uL (0.1-1.4) 03/05/20 11:13 Absolute Eos (Manual) 0.3 10^3/uL (0.0-0.6) 03/05/20 11:13 Abs Basophils (Manual) 0.0 10^3/uL (0.0-0.2) 03/05/20 11:13 Clumped Platelets PRESENT 03/05/20 11:13 Platelet Comment ADEQUATE 03/05/20 11:13 RBC Morph Comment NORMO-CYTIC/CHROMIC 03/05/20 11:13 Fibrinogen 599 mg/dL (209-497) H 03/05/20 11:13 D-Dimer 2.37 ug/mL (0.00-0.50) H 03/06/20 05:56 Sodium 137.8 mmol/L (137-145) 03/08/20 04:44 Potassium 4.0 mmol/L (3.6-5.0) 03/08/20 04:44 Chloride 110 mmol/L (98-107) H 03/08/20 04:44 Carbon Dioxide 19 mmol/L (22-30) L 03/08/20 04:44 Anion Gap 9 (5-19) 03/08/20 04:44 BUN 26 mg/dL (7-20) H 03/08/20 04:44 Creatinine 1.20 mg/dL (0.52-1.25) 03/08/20 04:44 Est GFR ( Amer) 52 (>60) L 03/08/20 04:44 Est GFR (MDRD) Non-Af 43 (>60) L 03/08/20 04:44 Glucose 102 mg/dL (75-110) 03/08/20 04:44 Lactic Acid 1.4 mmol/L (0.7-2.1) 03/06/20 00:28 Calcium 8.7 mg/dL (8.4-10.2) 03/08/20 04:44 Magnesium 1.7 mg/dL (1.6-2.3) 03/08/20 04:44 Ferritin 220.00 ng/mL (11.1-264.0) 03/05/20 16:54 Total Bilirubin 0.6 mg/dL (0.2-1.3) 03/08/20 04:44 Direct Bilirubin 0.5 mg/dL (0.0-0.4) H 03/08/20 04:44 Neonat Total Bilirubin Not Reportable 03/08/20 04:44 Neonat Direct Bilirubin Not Reportable 03/08/20 04:44 Neonat Indirect Bili Not Reportable 03/08/20 04:44 AST 42 U/L (14-36) H 03/08/20 04:44 ALT 39 U/L (<35) H 03/08/20 04:44 Alkaline Phosphatase 144 U/L (38-126) H 03/08/20 04:44 Lactate Dehydrogenase 277 U/L (120-246) H 03/05/20 16:54 Troponin I < 0.012 ng/mL 03/05/20 11:13 C-Reactive Protein 46.0 mg/L (<10.0) H 03/06/20 05:56 NT-Pro-B Natriuret Pep 136 pg/mL (<450) 03/05/20 11:13 Total Protein 5.6 g/dL (6.3-8.2) L 03/08/20 04:44 Albumin 2.6 g/dL (3.5-5.0) L 03/08/20 04:44 Urine Color YELLOW 03/06/20 02:40 Urine Appearance CLEAR 03/06/20 02:40 Urine pH 5.0 (5.0-9.0) 03/06/20 02:40 Ur Specific [place] 1.012 03/06/20 02:40 Urine Protein NEGATIVE mg/dL (NEGATIVE) 03/06/20 02:40 Urine Glucose (UA) NEGATIVE mg/dL (NEGATIVE) 03/06/20 02:40 Urine Ketones NEGATIVE mg/dL (NEGATIVE) 03/06/20 02:40 Urine Blood NEGATIVE (NEGATIVE) 03/06/20 02:40 Urine Nitrite (Reflex) NEGATIVE (NEGATIVE) 03/06/20 02:40 Urine Bilirubin NEGATIVE (NEGATIVE) 03/06/20 02:40 Urine Urobilinogen NEGATIVE mg/dL (<2.0) 03/06/20 02:40 Leukocyte Esterase Rfl TRACE (NEGATIVE) H 03/06/20 02:40 Urine RBC (Auto) 0 /HPF 03/06/20 02:40 Urine WBC (Reflex) 6 /HPF 03/06/20 02:40 Urine Ascorbic Acid 40 (NEGATIVE) H 03/06/20 02:40 Romie Human Metapneumo PCR NOT DETECTED (NOT DETECT) 03/07/20 09:06 Adenovirus (PCR) NOT DETECTED (NOT DETECT) 03/07/20 09:06 B. pertussis DNA (PCR) NOT DETECTED (NOT DETECT) 03/07/20 09:06 B.parapertussis DNA PCR NOT DETECTED (NOT DETECT) 03/07/20 09:06 C. pneumoniae DNA (PCR) NOT DETECTED (NOT DETECT) 03/07/20 09:06 Coronavirus OC43 (PCR) NOT DETECTED (NOT DETECT) 03/07/20 09:06 Coronavirus HKU1 (PCR) NOT DETECTED (NOT DETECT) 03/07/20 09:06 Coronavirus 229E (PCR) NOT DETECTED (NOT DETECT) 03/07/20 09:06 Coronavirus NL63 (PCR) NOT DETECTED (NOT DETECT) 03/07/20 09:06 Influenza A (Rapid) NEGATIVE (NEGATIVE) 03/05/20 13:21 Influenza A (RT-PCR) NEGATIVE (NEGATIVE) 03/05/20 13:21 Influenza A (H1) PCR NOT DETECTED (NOT DETECT) 03/07/20 09:06 Influ A (H1N1/09) PCR NOT DETECTED (NOT DETECT) 03/07/20 09:06 Influenza A (H3) PCR NOT DETECTED (NOT DETECT) 03/07/20 09:06 Influenza Type A (PCR) NOT DETECTED (NOT DETECT) 03/07/20 09:06 Influenza B (Rapid) NEGATIVE (NEGATIVE) 03/05/20 13:21 Influenza B (RT-PCR) NEGATIVE (NEGATIVE) 03/05/20 13:21 Influenza Type B (PCR) NOT DETECTED (NOT DETECT) 03/07/20 09:06 M. pneumoniae (PCR) NOT DETECTED (NOT DETECT) 03/07/20 09:06 Parainfluenza 1 (PCR) NOT DETECTED (NOT DETECT) 03/07/20 09:06 Parainfluenza 2 (PCR) NOT DETECTED (NOT DETECT) 03/07/20 09:06 Parainfluenza 3 (PCR) NOT DETECTED (NOT DETECT) 03/07/20 09:06 Parainfluenza 4 (PCR) NOT DETECTED (NOT DETECT) 03/07/20 09:06 RSV (RT-PCR) NEGATIVE (NEGATIVE) 03/05/20 13:21 RSV (PCR) NOT DETECTED (NOT DETECT) 03/07/20 09:06 Entero/Rhino (PCR) NOT DETECTED (NOT DETECT) 03/07/20 09:06 SARS-CoV-2 (PCR) NOT DETECTED (NOT DETECT) 03/07/20 09:06 SARS-CoV-2 Rap RNA(RT-PCR) NEGATIVE (NEGATIVE) 03/05/20 13:21 03/05/20 03/05/20 11:13 11:13 Troponin I < 0.012 NT-Pro-B Natriuret Pep 136 Impressions: Chest X-Ray 03/05/20 10:50 IMPRESSION: In the appropriate clinical setting, findings are consistent with multi lobar pneumonia. Given distribution, recommend consideration for atypical etiologies to include viral/ COVID in treatment planning. Stroke Is this a Stroke Patient?: No Acute Heart Failure Is this a Heart Failure Patient?: No
== END 2020-03-08 15:15 | disposition home or self-care (01) | DRG 871 ==
LOC: ER 10:20 → EH 13:46 → 5TH 18:55 → 4S 03-06 20:42
PROVIDERS: ADMIT Hospitalist; ATTEND Hospitalist
DX: A41.9 Sepsis, unspecified organism (principal); J96.01 Acute respiratory failure with hypoxia; J15.9 Unspecified bacterial pneumonia; N17.9 Acute kidney failure, unspecified; R79.1 Abnormal coagulation profile; E86.0 Dehydration; E87.5 Hyperkalemia; R65.20 Severe sepsis without septic shock; I10 Essential (primary) hypertension; J45.909 Unspecified asthma, uncomplicated; Z20.822 Contact with and (suspected) exposure to COVID-19; M19.90 Unspecified osteoarthritis, unspecified site; Z90.710 Acquired absence of both cervix and uterus; Z82.49 Family history of ischemic heart disease and other diseases of the circulatory system; Z88.7 Allergy status to serum and vaccine; Z88.8 Allergy status to other drugs, medicaments and biological substances; Z91.012 Allergy to eggs; Z79.899 Other long term (current) drug therapy
CPT/HCPCS: 36415; 71045; 80053; 81001; 82728; 83605; 83615; 83735; 83880; 84484; 85025; 85379; 85384; 86140; 87040; 87804; 93005; 93010; 96360; 99285; 0202U; 0241U; C9803; J0696; J1644; J3490; J7030; J7060